=== PATIENT | female | born 1960 | race Caucasian/White ===

== ENCOUNTER 2020-08-05 10:29 | Observation (INO) ==
--- NOTE | 2020-07-15 14:48 | PAT Medication Instructions ---
Medication Instructions Date of Service July 15, 2020 Home Medications albuterol sulfate [Ventolin HFA] 2 puff INHALATION QID PRN benztropine 1 mg PO BID budesonide [Pulmicort Flexhaler] 2 inh INHALATION BID buspirone 30 mg PO BID hydroxyzine HCl 25 mg PO QID PRN ibuprofen 600 mg PO BID PRN levothyroxine 50 mcg PO UD omeprazole 40 mg PO QAM pravastatin 40 mg PO HS risperidone 3 mg PO BID sertraline 50 mg PO QAM acetaminophen [Tylenol Extra Strength] 1,000 mg PO BID PRN ASK your surgeon for instructions ibuprofen 600 mg PO BID PRN DO NOT take the morning of surgery hydroxyzine HCl 25 mg PO QID PRN Take morning of surgery With a small sip of water, OTHERWISE NOTHING TO EAT OR DRINK AFTER MIDNIGHT: albuterol sulfate [Ventolin HFA] 2 puff INHALATION QID PRN (use if needed; please bring rescue inhaler with you to hospital day of surgery if possible) benztropine 1 mg PO BID budesonide [Pulmicort Flexhaler] 2 inh INHALATION BID buspirone 30 mg PO BID levothyroxine 50 mcg PO UD omeprazole 40 mg PO QAM risperidone 3 mg PO BID sertraline 50 mg PO QAM acetaminophen [Tylenol Extra Strength] 1,000 mg PO BID PRN (okay to take up to 4 hours prior to surgery if needed) Take evening before surgery albuterol sulfate [Ventolin HFA] 2 puff INHALATION QID PRN (if needed) benztropine 1 mg PO BID budesonide [Pulmicort Flexhaler] 2 inh INHALATION BID buspirone 30 mg PO BID hydroxyzine HCl 25 mg PO QID PRN (if needed) pravastatin 40 mg PO HS risperidone 3 mg PO BID acetaminophen [Tylenol Extra Strength] 1,000 mg PO BID PRN (if needed) Other Notes If you have any questions please call us at [phone] or [phone] or [phone] or [phone]
--- NOTE | 2020-07-31 12:48 | Anesthesiology Consultation ---
Date of Service July 31, 2020 Assessment & Plan (1) Encounter for pre-operative examination: - COVID screening: Per assessment on 07/08: Travel screen negative, no known COVID-19 positive contacts or current COVID-19 related symptoms. Surgeon arranging preop COVID testing. Awaiting results. - Bifascicular block: noted on preop EKG done 03/2020. No comparison EKG's available. Report forwarded to PCP. Received response from PCP (07/31/20): "she has RBBB but otherwise NSR. she is OK to have surg.. she has multiple lung issues so just need to monitor O2 sats closely." - PCP Clearance: 04/02/20: "patient is medically clear for the surgery." - Pulmonary Clearance: 03/29/20: "Based on that ArisCAT score index patient falls into low pulmonary risk complications. Patient is morbidly obese. She is aware that it may be difficult to extubate her. She has to be extubated to BiPAP/AVAPS. High risk for aspiration. Opioid free anesthesia is recommended. Recommend albuterol nebulization half an hour prior to the procedure. Patient is cleared for surgery under general anesthesia. If possible spinal anesthesia should be considered for her." Chart Review Chart Review: Acceptable Risk for Surgery (pending evaluation AM DOS) and Patient NOT seen in Pre Admission Testing History Surgery Operation Date: 08/05/20 12:10 Proposed Procedures p Left Total Knee Arthroplasty - Quoc Das DO Height/Weight Height: 5 ft 3.5 in Weight: 106.141 kg Allergies Allergy/AdvReac Type Severity Reaction Status Date / Time No Known Allergies Allergy Verified 07/08/20 11:48 Medications Home Medications Medication Instructions Recorded Confirmed Last Taken albuterol sulfate [Ventolin HFA] 2 puff INHALATION QID PRN 03/19/20 07/08/20 Unknown benztropine 1 mg PO BID 03/19/20 07/08/20 Unknown budesonide [Pulmicort Flexhaler] 2 inh INHALATION BID 03/19/20 07/08/20 Unknown buspirone 30 mg PO BID 03/19/20 07/08/20 Unknown hydroxyzine HCl 25 mg PO QID PRN 03/19/20 07/08/20 Unknown ibuprofen 600 mg PO BID PRN 03/19/20 07/08/20 Unknown levothyroxine 50 mcg PO UD 03/19/20 07/08/20 Unknown omeprazole 40 mg PO QAM 03/19/20 07/08/20 Unknown pravastatin 40 mg PO HS 03/19/20 07/08/20 Unknown risperidone 3 mg PO BID 03/19/20 07/08/20 Unknown sertraline 50 mg PO QAM 03/19/20 07/08/20 Unknown acetaminophen [Tylenol Extra 1,000 mg PO BID PRN 07/08/20 07/08/20 Unknown Strength] Past Medical History Medical History Anxiety Asthma on 3L at home (does not have portable), follows with Dr. Gonzales at [facility] Bifascicular block noted on 03/26/20 EKG Bipolar disorder Bruxism (teeth grinding) Congestive heart failure hx Hyperlipidemia Hypothyroidism Obesity hypoventilation syndrome Osteoarthritis Poor historian Sleep apnea CPAP Stress incontinence Past Family History Family History Family/Other Diabetes 2 UNCLES Grandmother (Maternal) Colon cancer Other No family history of adverse response to anesthesia Past Surgical History Surgical History History of cholecystectomy History of colonoscopy History of hysterectomy with unilateral oophorectomy History of repair of left rotator cuff History of tooth extraction Social History Smoking Status: Former smoker Do You Dip or Chew Tobacco: No Smoking End Date: QUIT 1 YR AGO Hx Alcohol Use: Yes Alcohol type: hard liquor alcohol intake frequency: holidays/special occasions only Hx Substance Use: No substance use type: does not use Testing Laboratory Results 07/24/20 WBC 12.15 (surgeon's office aware) H/H 13.9/45.5 PLATELETS 317 SODIUM 136 POTASSIUM 4.2 CHLORIDE 99 CO2 29.7 BUN 13.8 CREATININE 0.95 GLUCOSE 102 PT 10.7 PTT 35.4 INR 0.94 UA negative nitrite, large leuk est/+bacteria (surgeon's office aware) HGBA1C 5.8% TSH 44.6 Free T4 0.58 PCP monitoring thyroid levels and levothyroxine dosing. At anesthesiologist discretion AM DOS if repeat thyroid labs needed* Electrocardiogram Date: 03/26/20 Findings: + NSR @ (89bpm) RBBB, LPFB. *Bifascicular block.* No previous EKGs available in our system. Chest X-Ray Date: 03/18/20 Findings: + NAD
--- NOTE | 2020-08-03 08:30 | History & Physical Report ---
Date of Service August 05, 2020 Assessment & Plan (1) Degenerative joint disease of left knee: I have indicated the patient for left total knee replacement. The risks, benefits and complications of surgery were explained to the patient which include but not limited to infection, acute blood loss, DVT/PE, injury to nerves, vessels, bone, soft tissue, arthrofibrosis, chronic pain, failure of the prosthesis, knee dislocation, leg length discrepancy, need for additional surgery, cardiac and pulmonary events and . The patient wished to proceed with surgery and informed consent was obtained at this time. We will plan for 81mg ASA BID post-operatively for DVT prophylaxis. Upon discharge the patient will be discharged home with home health services. Appropriate clearances by PCP and vending machine coin collector were obtained. Patient asymptomatic for UTI. History of Present Illness Chief Complaint: Left knee pain/DJD Primary Care Provider: TOMA PCP The patient is a 60 year old female who presents with complaints of severe left knee pain and DJD. The patient has failed outpatient conservative treatments to this point which included NSAIDs, IA corticosteroid and BISWAS injections, bracing, PT and a home exercise/walking program. The patient's pain and limited function have progressed to the point where they severely hinder their activities of daily living and they no longer tolerate exercise programs. They are requesting to proceed with total knee replacement surgery. Allergies Allergy/AdvReac Type Severity Reaction Status Date / Time No Known Allergies Allergy Verified 08/05/20 10:52 Home Medications Medication Instructions Recorded Confirmed Type albuterol sulfate [Ventolin HFA] 2 puff INHALATION QID PRN 03/19/20 08/05/20 History benztropine 1 mg PO BID 03/19/20 08/05/20 History budesonide [Pulmicort Flexhaler] 2 inh INHALATION BID 03/19/20 08/05/20 History buspirone 30 mg PO BID 03/19/20 08/05/20 History hydroxyzine HCl 25 mg PO QID PRN 03/19/20 08/05/20 History ibuprofen 600 mg PO BID PRN 03/19/20 08/05/20 History levothyroxine 100 mcg PO UD 03/19/20 08/05/20 History omeprazole 40 mg PO QAM 03/19/20 08/05/20 History pravastatin 40 mg PO HS 03/19/20 08/05/20 History risperidone 3 mg PO BID 03/19/20 08/05/20 History sertraline 50 mg PO QAM 03/19/20 08/05/20 History acetaminophen [Tylenol Extra 1,000 mg PO BID PRN 07/08/20 08/05/20 History Strength] Past Med/Surg History Medical History Anxiety Asthma on 3L at home (does not have portable), follows with Dr. Gonzales at [facility] Bifascicular block noted on 03/26/20 EKG Bipolar disorder Bruxism (teeth grinding) Congestive heart failure hx Hyperlipidemia Hypothyroidism Obesity hypoventilation syndrome Osteoarthritis Poor historian Sleep apnea CPAP Stress incontinence Surgical History History of cholecystectomy History of colonoscopy History of hysterectomy with unilateral oophorectomy History of repair of left rotator cuff History of tooth extraction Family History Family/Other Diabetes 2 UNCLES Grandmother (Maternal) Colon cancer Other No family history of adverse response to anesthesia Social History Smoking Status: Former smoker Smoking End Date: QUIT 1 YR AGO; Second Hand Exposure: Yes (FATHER SMOKED); Do You Dip or Chew Tobacco: No; Hx Alcohol Use: Yes Alcohol type: hard liquor Hx Substance Use: No Preferred Language: Turkmen Communication Ability: Effective Yard Cleaner Required: No Beliefs That Will Affect Care: Amish Amish Beliefs: Shinto Current Living Situation: Alone Other Information That Helps Us Care for You: No Feels Safe at Home: Yes Safety Concerns: Feels Safe At This Time Assistive Devices: CPAP, Glasses, Oxygen - Continuous and Walker Review of Systems Review of Systems: All systems reviewed & are unremarkable except as noted in HPI & below Constitutional: as per Subjective / HPI Physical Exam Physical Exam: LLE NVSI +EHL/FHL/TA/GS SILT grossly, +2 DP pulse, compartments soft NT, limited painful ROM, 0-120 degrees flexion, +crepitus. Constitutional: WD/WN, vitals as above Eyes: PERRL, conjunctivae normal, anicteric sclerae ENMT: external ear and nose normal, oropharynx normal Neck: trachea midline, no thyromegaly Respiratory: normal respiratory effort, lungs clear to auscultation Cardiovascular: RRR, no murmur, no edema Gastrointestinal (Abdomen): normal bowel sounds, soft, nontender, no hepatosplenomegaly Musculoskeletal: no cyanosis or clubbing, extremities motor strength 5/5 Skin: no rashes, warm and dry Neurologic: patellar DTR's 2+ bilat, sensation intact Psychiatric: A+Ox3, euthymic affect Lymphatic: no cervical or axillary lymphadenopathy Results & Data Results & Data ([facility]) Diagnostic Findings Multiple views of the knee demonstrates severe tricompartmental DJD with complete loss of the medial joint space. +osteophytes, +sclerosis, +subchondral cysts.
[~2020-08-05 10:29] MED LIST: ACETAMINOPHEN 500 MG TAB PO SCH; BUPIVACAINE 0.5 % 5 MG/1 ML PF 10ML VIAL ONE; CeleBREX 200 MG CAP PO SCH; FAMOTIDINE 20 MG TAB PO SCH; LIDOCAINE HCL 2% 2 ML VIAL/AMP(20MG/ML) INFIL ONE; LR 15ML/HR IV SCH; METOCLOPRAMIDE HCL 10 MG TABLET PO SCH; MIDAZOLAM HCL 1 MG/ML 2ML VIAL ONE; PHENYLEPHRINE 100MCG/ML 5ML SYR ONE; PROPOFOL IV EMULSION 10 MG/ML 20 ML VIAL IV ONE; ROPIVACAINE 0.5% 5 MG/ML 30 ML VIAL ONE; ROPIVACAINE 0.5% HCL/PF 150 MG, BUPIVACAINE 0.75% MPF 20 ML, EPINEPHrine 30MG/30ML (OR ... INFIL SCH; TRANEXAMIC ACID 1,000 MG **IV Intra-op IV SCH; TRANEXAMIC ACID 1,000 MG **IV Pre-op IV SCH; [UNRECOGNIZED DRUG - REMARK] SCH; dexAMETHasone 4 MG TAB PO SCH; ePHEDrine sulfate 50 MG/ML SYR ONE; fentaNYL citrate 100 MCG/2 ML VIAL ONE
[2020-08-05] MEDS ORDERED: ceFAZolin 2,000 MG/15 ML IV PUSH IV ONE (10:58)
[2020-08-05] MEDS ORDERED: BACITRACIN INJ 50,000 UNIT VIAL ONE (11:31)
[2020-08-05] MEDS ORDERED: ORTHO JOINT ANESTHETIC ONE (11:31)
--- NOTE | 2020-08-05 12:53 | History & Physical Bridge Note ---
Date of Service August 05, 2020 History & Physical Bridge Note I have examined the patient, reviewed the History & Physical and in the interval since the performance of the History & Physical I have noted the following changes of clinical significance: no changes noted
--- NOTE | 2020-08-05 14:14 | Post Operative Brief Note ---
Immediate Post Op Note v1 Date of Surgery August 05, 2020 Pre & Post Diagnosis Operation Date: 08/05/20 13:00 Pre-Op Diagnosis: Osteoarthritis Left Knee Post-Op Diagnosis: Osteoarthritis Left Knee I identified the patient and participated in the time-out.: Yes Procedure Operation Date: 08/05/20 13:00 Actual Procedures p Left Total Knee Arthroplasty(Left) - Quoc Das DO Surgeon Quoc Das DO Photographic Equipment Inspector Mateusz Magaña Estimated Blood Loss 75 Findings Consistent with Post-Op Diagnosis Fluids See anesthesia report Specimens Proximal tibia and distal femur bone fragments Anesthesia Type Spinal MAC Complications none Disposition Disposition: Recovery Room Overlapping Procedure I was present for: the critical portions of procedure. I was immediately available: during the entire case. Back up surgeon: was not required during procedure.
--- NOTE | 2020-08-05 14:16 | Operative Report ---
Post Operative Report Pre & Post Diagnosis Operation Date: 08/05/20 13:00 Pre-Op Diagnosis: Osteoarthritis Left Knee Post-Op Diagnosis: Osteoarthritis Left Knee I identified the patient and participated in the time-out.: Yes Procedure Operation Date: 08/05/20 13:00 Actual Procedures p Left Total Knee Arthroplasty(Left) - Quoc Das DO Surgeon Quoc Das DO Fence Making Machine Operator Mateusz Magaña Estimated Blood Loss 75 Findings Consistent with Post-Op Diagnosis Fluids See anesthesia report Specimens Proximal tibia and distal femur bone fragments Anesthesia Type Spinal MAC Complications none Disposition Disposition: Recovery Room Indications The patient is a 60-year-old female presents with long history of severe left knee tricompartmental DJD and failed outpatient conservative treatments including NSAIDs, bracing, injections and home walking/exercise program. The patient's symptoms have progressed to the point where it has been difficult to perform normal activities of daily living. I have indicated the patient for a left total knee arthroplasty, the risks and benefits and complications of the procedure include but are not limited to infection bleeding damage to bone, nerves, vessels, surrounding soft tissue, blood clots, loss of function, leg length discrepancy, dislocation, failure of the components, need for additional surgery and . The patient wished to proceed with surgery at this time and informed consent was obtained. Appropriate clearances were obtained. Description of Procedure COMPONENTS USED: Nina [employer]omet knee system: Femur size 4 standard, Tibia size D with 30 mm extension, Tibial articulating surface 12 CPS, Patella 32 mm Following induction of spinal anesthesia, a tourniquet was applied to the proximal aspect of the thigh and the patient's left leg was prepped and draped in the usual sterile manner. A timeout was performed, patient identified and site marcelo confirmed. Appropriate pre-operative IV antibiotics were given. The limb was exsanguinated with an Esmarch bandage and tourniquet was inflated to 300 mmHg. A longitudinal midline incision was made over the anterior knee. Subcutaneous tissue was sharply dissected down to fascia. Electrocautery was used for hemostasis. Next a parapatellar arthrotomy was performed. Patella was everted and the knee was flexed. A Hernandez retractor was used to expose the synovium above on the anterior aspect of the femur and removed down to bone. Next, the anterior fat pad was removed to aid in visualization. The medial face of the tibia was cleared of soft tissue first with a Bovie and a burks elevator. This tissue was retracted posteriorly using a blunt Hohmann. Next, the extra-medullary tibial cutting guide was placed to the anterior aspect of the tibia. The tibia resection level was set taking 2mm from the defective tibial condyle. Resection depth was once again confirmed with nir wing. The medial and lateral collateral ligament was protected with two Hohmann retractors. The tibia guide was removed and proximal tibial bone fragment removed utilizing straight osteotome, electrocautery and Teodora. Next, the distal femur intramedullary canal was accessed utilizing the step drill. The intramedullary distal femur cutting guide was placed into the canal and pinned into place. The distal femur was cut on the 5 degree setting. Next the cutting guide was removed and the femur was sized. Care was taken to ensure appropriate slot shift supervisor all rotation and 3 degree holes were drilled. A size 4 4-in-1 cutting block was placed on the distal end of the femur and secured into place with two short headed screws. Two bent Hohmann retractors were placed to protect the medial and lateral collateral ligaments. The oscillating saw was used to cut anterior, posterior, anterior chamfer and posterior chamfer. The four and one cutting block was removed and bone fragments excised. Patricio inar perpetual inventory clerk was placed laterally and the ACL and PCL were removed followed by the medial meniscus and posterior medial osteophytes. Aquamantys was utilized for any posterior medial bleeders and Orthomix injected into the posterior medial capsule. A laminar perpetual inventory clerk was then placed in the medial compartment and the lateral meniscus and posterior osteophytes were removed. Aquamantys was utilized for any posterior lateral bleeders and Orthomix injected into the posterior lateral capsule. Next, drop milagro and spacer block were placed with the leg in flexion and extension to assess alignment and flexion/extension gaps. Next, the proximal tibia was assessed and two bent Hohmans were placed medial and lateral to aid in visualization. The appropriate tibia size and rotation was selected and a size D tibial plate was pinned into place with appropriate rotation. Preparation of the tibia was completed utilizing the matching tibial drill and broach. I then turned my attention back to the distal femur in a trial femoral component was impacted into place. Appropriate femoral width was assessed and selected. Next the femur PS box cut guide was placed and cut made with the reciprocal saw and the PS box provisional placed. A trial size 12 PS tibia articular tray was placed and varus-valgus balance assessed in 0 degrees of extension and 30, 60 and 90 degrees of flexion. A final tibial articular surface size 12 CPS was chosen. Assess was gained to the patella and caliper utilized to measure width. The patella reamer was utilized and remaining bone removed with oscillating saw. A size 32 mm patella button was selected and the patella pegs drilled. Trial patella button was placed and tracking was assessed. The knee was found to be well balanced, well aligned with excellent patella tracking. The trials were removed and final components were obtained and assembled. The knee was irrigated copiously with sterile saline solution mixed with bacitracin. Access to the proximal tibia was once again obtained utilizing to the Hohmans and the proximal tibia and distal femur were dried with lap sponges. The final components were cemented into place and all excess cement was removed. A trial tibial articular surface was placed while cemented hardened. Knee stability was once again assessed and the final component inserted. A Betadine soak was performed. After 3 minutes, the knee was once more irrigated with copious sterile saline solution with bacitracin. The knee was injected with the remaining Orthomix which includes a combination of Ropivicaine 0.5% 150mg, Bupivicaine 0.5%/Epinephrine 1:200,000 30ml, Toradol 30mg, Dexamethasone 4mg, Ketamine 10mg, Clonidine 100mcg and NSS 30ml solution. The capsulotomy was closed with #1 Vicryl followed by subcutaneous closure with 2-0 Vicryl suture and the skin was closed with mariah. A sterile dry dressing was applied which included lorraine incisional VAC, web roll and Philippe wrap. Tourniquet was deflated at 77 minutes. The patient tolerated the procedure well and was taken to the PACU in stable condition. Due to the complex nature of the procedure, the entire surgery was performed with the operational assistance of Mateusz Magaña PA-C. The employee relations assistant, under direct supervision, was involved in the actual performance of all aspects of the surgical procedure including patient positioning, hemostasis, tissue retraction, instrument management and wound closure. I attest to the content of the Intraoperative Record and any orders documented therein. Any exceptions are noted below.
--- NOTE | 2020-08-05 15:08 | XRay Report ---
TWO VIEWS LEFT KNEE CLINICAL HISTORY: Postoperative examination. FINDINGS: AP and crosstable lateral portable views of the left knee are obtained. A left knee arthrop lasty is in near anatomic alignment. There has been undersurface remodeling of the patella. No acute fracture is seen. There are expected postoperative changes around the knee including skin clips, sof t tissue edema, and subcutaneous gas. IMPRESSION: Expected postoperative changes status post left knee arthroplasty. No acute fracture is s een. ACT 112: Negative or not required by law. Electronically signed by: Mayo Helm M.D. 08/05/2020 3:07 PM
--- NOTE | 2020-08-05 16:08 | Anesthesiology Progress Note ---
Date of Service August 05, 2020 Anesthesia Post Procedure Vital Signs Vital Signs: Temp Pulse Resp BP Pulse Ox 08/05/20 16:05 36.6 C 94 H 16 113/72 94 08/05/20 15:55 36.6 C 89 16 103/79 93 08/05/20 15:45 36.6 C 87 18 124/85 92 08/05/20 15:35 84 16 115/74 94 08/05/20 15:25 86 19 104/79 95 08/05/20 15:15 80 18 122/86 95 08/05/20 15:05 83 15 99/72 L 97 08/05/20 14:55 87 18 117/72 94 08/05/20 14:45 96 H 17 100/82 93 08/05/20 14:39 36.8 C 96 H 16 98/72 L 93 08/05/20 12:31 93 H 20 113/72 96 08/05/20 11:00 36.7 C 88 18 124/95 93 Pain Intensity Bilateral Knee: Pain Intensity: 4 Transfer of Care Handoff Completed per policy Notes Mental Status: alert / awake / arousable and participated in evaluation Patient Amnestic to Procedure: Yes Nausea / Vomiting: adequately controlled Pain: adequately controlled Airway Patency, RR, SpO2: stable & adequate BP & HR: stable & adequate Hydration State: stable & adequate Anesthetic Complications: no major complications apparent and Pt Satisfied with anesthetic care
[2020-08-05] MEDS ORDERED: diphenhydrAMINE Capsule 25 MG CAP PO PRN (16:41)
[2020-08-05] MEDS ORDERED: MAGNESIUM HYDROXIDE SUSP 30 ML UDC PO PRN (16:41)
[2020-08-05] MEDS ORDERED: ALBUTEROL HFA 8 GM INHALER INH PRN (16:41)
[2020-08-05] MEDS ORDERED: NALOXONE HCL 0.4 MG/1 ML VIAL/CARP IV PRN (16:41)
[2020-08-05] MEDS ORDERED: ONDANSETRON INJ 2 MG/ML 2 ML VIAL IV PRN (16:41)
[2020-08-05] MEDS ORDERED: bisacodyL 10 MG SUPP PR PRN (16:41)
[2020-08-05] MEDS ORDERED: METOCLOPRAMIDE HCL INJ 5 MG/ML 2 ML VIAL IV PRN (16:41)
[2020-08-05] MEDS ORDERED: HYDROmorphone INJ 0.5 MG/0.5 ML SYR IV PRN (16:41)
--- NOTE | 2020-08-05 16:58 | Orthopedic Progress Note ---
Date of Service August 05, 2020 Assessment & Plan (1) Degenerative joint disease of left knee: Status post right total knee arthroplasty -Ancef x24 -DVT prophylaxis: SCDs, teds, 81 mg ASA twice daily -Weight-bear as tolerated left lower extremity -PT/OT -Postoperative x-ray demonstrates a well aligned well fixed prosthesis without fracture or dislocation -A.m. lab -Discharge planning rehab Admission and Anticipated Discharge Date Admission Date: August 05, 2020 Subjective Post Operative Progress Note Patient seen sitting up in bed, comfortable, denies complaints, pain well controlled, no acute issues. Review of Systems Review of Systems: All systems reviewed & are unremarkable except as noted in HPI & below Constitutional: as per Subjective / HPI Physical Exam Physical Exam: Physical exam left lower extremity limited secondary to spinal anesthesia, +2 dorsalis pedis pulse, compartment soft nontender, dressing clean dry and intact Constitutional: WD/WN, vitals as above Results & Data ([facility]) Vital Signs (Past 12 Hours) Vital Signs Temp Pulse Pulse Resp BP Pulse Ox 08/05/20 16:47 36.5 C 82 18 122/85 95 08/05/20 16:20 36.7 C 91 H 16 133/81 92 08/05/20 16:05 36.6 C 94 H 16 113/72 94 08/05/20 15:55 36.6 C 89 16 103/79 93 08/05/20 15:45 36.6 C 87 18 124/85 92 08/05/20 15:35 84 16 115/74 94 08/05/20 15:25 86 19 104/79 95 08/05/20 15:15 80 18 122/86 95 08/05/20 15:05 83 15 99/72 L 97 08/05/20 14:55 87 18 117/72 94 08/05/20 14:45 96 H 17 100/82 93 08/05/20 14:39 36.8 C 96 H 16 98/72 L 93 08/05/20 12:31 93 H 20 113/72 96 08/05/20 11:00 36.7 C 88 18 124/95 93
[2020-08-05] MEDS: SODIUM CHLORIDE 0.9% 1000ML 1,000 ML IV SCH ×2 (17:54→22:46)
[2020-08-05] MEDS: KETOROLAC TROMETHAMINE 15 MG/ML VIAL IV SCH ×2 (17:54→22:15)
[2020-08-05] MEDS: ceFAZolin 2000MG 2,000 MG/15 ML SYR IV SCH (22:12)
[2020-08-05] MEDS: SENNA 8.6 MG TAB PO SCH (22:13)
[2020-08-05] MEDS: PRAVASTATIN SOD 40 MG TAB PO SCH (22:13)
[2020-08-05] MEDS: risperiDONE 3 MG TABLET PO SCH (22:13)
[2020-08-05] MEDS: DOCUSATE SODIUM 100 MG CAP PO SCH (22:14)
[2020-08-05] MEDS: BENZTROPINE MESYLATE 1 MG TAB PO SCH (22:14)
[2020-08-05] MEDS: busPIRone 15 MG TAB PO SCH (22:14)
[2020-08-05] MEDS: ACETAMINOPHEN 500 MG TAB PO SCH (22:15)
[2020-08-06] MEDS: SODIUM CHLORIDE 0.9% 1000ML 1,000 ML IV SCH (04:20)
[2020-08-06] MEDS: ACETAMINOPHEN 500 MG TAB PO SCH ×3 (05:44→21:55)
[2020-08-06] MEDS: ceFAZolin 2000MG 2,000 MG/15 ML SYR IV SCH (05:44)
[2020-08-06] MEDS: KETOROLAC TROMETHAMINE 15 MG/ML VIAL IV SCH ×2 (05:44→11:37)
[2020-08-06 07:07] LABS: Hematocrit (blood only) 38.8 % (37-47); Hemoglobin 12.8 g/dL (12.0-16.0); Mean Corpuscular Volume 90.9 fL (80-100); Mean Platelet Volume 9.9 fL (7.4-10.4); Platelet Count 342 K/uL (130-400); RDW Coefficient of Variation 14.6 % (11.5-14.5); RDW Standard Deviation 48.8 fL (36.4-46.3); Red Blood Count 4.27 M/uL (4.2-5.4); White Blood Count 17.15 K/uL (4.8-10.8)
[2020-08-06 07:50] LABS: BUN Creatinine Ratio 15.2 (10-20); Creatinine Clr Calc Pharmacy 73.4 ml/min; Est GFR (African American) 76.3; Est GFR (Non-African American) 65.9; Potassium 4.1 mmol/L (3.5-5.1)
--- NOTE | 2020-08-06 08:09 | Anesthesiology Progress Note ---
Date of Service August 06, 2020 Anesthesia Post Procedure Vital Signs Vital Signs: Temp Pulse Pulse Resp BP BP Pulse Ox 08/06/20 03:13 36.7 C 81 20 111/74 90 08/05/20 21:49 36.5 C 78 16 99/67 L 91 08/05/20 19:20 36.6 C 82 18 114/76 94 08/05/20 18:20 36.6 C 96 H 18 112/78 94 08/05/20 17:25 36.5 C 104 H 18 124/86 93 08/05/20 16:47 36.5 C 82 18 122/85 95 08/05/20 16:20 36.7 C 91 H 16 133/81 92 08/05/20 16:05 36.6 C 94 H 16 113/72 94 08/05/20 15:55 36.6 C 89 16 103/79 93 08/05/20 15:45 36.6 C 87 18 124/85 92 08/05/20 15:35 84 16 115/74 94 08/05/20 15:25 86 19 104/79 95 08/05/20 15:15 80 18 122/86 95 08/05/20 15:05 83 15 99/72 L 97 08/05/20 14:55 87 18 117/72 94 08/05/20 14:45 96 H 17 100/82 93 08/05/20 14:39 36.8 C 96 H 16 98/72 L 93 08/05/20 12:31 93 H 20 113/72 96 08/05/20 11:00 36.7 C 88 18 124/95 93 Notes Mental Status: alert / awake / arousable Nausea / Vomiting: adequately controlled Pain: adequately controlled Airway Patency, RR, SpO2: stable & adequate BP & HR: stable & adequate Hydration State: stable & adequate Neuraxial Anesthesia: was administered and sensory block resolved Anesthetic Complications: no major complications apparent and Pt Satisfied with anesthetic care
[2020-08-06] MEDS: FLUTICASONE FUROATE 100MCG 14 PUFFS/INHALER INH SCH (08:29)
[2020-08-06] MEDS: busPIRone 15 MG TAB PO SCH ×2 (08:30→21:53)
[2020-08-06] MEDS: ASPIRIN 81 MG ECTAB PO SCH ×2 (08:31→21:53)
[2020-08-06] MEDS: BENZTROPINE MESYLATE 1 MG TAB PO SCH ×2 (08:31→21:54)
[2020-08-06] MEDS: MULTIVITAMIN TAB PO SCH (08:31)
[2020-08-06] MEDS: DOCUSATE SODIUM 100 MG CAP PO SCH ×2 (08:31→21:54)
[2020-08-06] MEDS: PANTOprazole 40 MG TAB PO SCH (08:32)
[2020-08-06] MEDS: risperiDONE 3 MG TABLET PO SCH ×2 (08:32→21:54)
[2020-08-06] MEDS: SERTRALINE HCL 50 MG TABLET PO SCH (08:32)
[2020-08-06] MEDS: oxyCODONE HCL IR 5 MG TAB (IMMEDIATE RELEASE) PO PRN ×3 (08:37→19:42)
--- NOTE | 2020-08-06 18:46 | Orthopedic Progress Note ---
Date of Service August 06, 2020 Assessment & Plan (1) Degenerative joint disease of left knee: Status post right total knee arthroplasty POD#1 -Ancef x24 -DVT prophylaxis: SCDs, teds, 81 mg ASA twice daily -Weight-bear as tolerated left lower extremity -PT/OT -Postoperative x-ray demonstrates a well aligned well fixed prosthesis without fracture or dislocation -A.m. lab - as above, hgb 12.8 -Discharge planning - rehab Admission and Anticipated Discharge Date Admission Date: August 05, 2020 Subjective Post Operative Progress Note Patient seen sitting up in bed, comfortable, denies complaints, pain well controlled, no acute issues. Denies F/C/N/V/SOB/CP. Review of Systems Review of Systems: All systems reviewed & are unremarkable except as noted in HPI & below Constitutional: as per Subjective / HPI Physical Exam Physical Exam: LLE NVSI +EHL/FHL/TA/GS SILT grossly, +2 DP pulse, compartments soft NT, dressing cdi. Constitutional: WD/WN, vitals as above Results & Data ([place]) Vital Signs (Past 12 Hours) Vital Signs Temp Pulse Resp BP Pulse Ox Pulse Ox Pulse Ox 08/06/20 14:55 36.3 C L 74 16 105/70 97 08/06/20 11:46 94 08/06/20 10:53 94 92 08/06/20 08:10 36.4 C L 75 16 110/76 92 Pulse Ox 08/06/20 14:55 08/06/20 11:46 08/06/20 10:53 96 08/06/20 08:10 Laboratory Results 08/06/20 08/06/20 Range/Units 06:46 06:46 WBC 17.15 H (4.8-10.8) K/uL RBC 4.27 (4.2-5.4) M/uL Hgb 12.8 (12.0-16.0) g/dL Hct 38.8 (37-47) % MCV 90.9 (80-100) fL MCH 30.0 (25-34) pg MCHC 33.0 (32-36) g/dL RDW Std Deviation 48.8 H (36.4-46.3) fL RDW Coeff of Ciarra 14.6 H (11.5-14.5) % Plt Count 342 (130-400) K/uL MPV 9.9 (7.4-10.4) fL Sodium 142 (136-145) mmol/L Potassium 4.1 (3.5-5.1) mmol/L Chloride 108 H (98-107) mmol/L Carbon Dioxide 29 (21-32) mmol/L Anion Gap 5.0 (3-11) BUN 14 (7-18) mg/dl Creatinine 0.93 (0.6-1.2) mg/dl Est Cr Clr Drug Dosing 73.4 ml/min Est GFR ( Amer) 76.3 Est GFR (Non-Af Amer) 65.9 BUN/Creatinine Ratio 15.2 (10-20) Glucose 122 H (70-99) mg/dl Calcium 9.0 (8.5-10.1) mg/dl
[2020-08-06] MEDS: SENNA 8.6 MG TAB PO SCH (21:54)
[2020-08-06] MEDS: CeleBREX 200 MG CAP PO SCH (21:55)
[2020-08-06] MEDS: PRAVASTATIN SOD 40 MG TAB PO SCH (21:55)
[2020-08-07] MEDS: oxyCODONE HCL IR 5 MG TAB (IMMEDIATE RELEASE) PO PRN ×3 (01:46→15:58)
[2020-08-07] MEDS: ACETAMINOPHEN 500 MG TAB PO SCH ×3 (05:12→20:14)
[2020-08-07 08:09] LABS: Hematocrit (blood only) 37.9 % (37-47); Hemoglobin 12.4 g/dL (12.0-16.0); Mean Corpuscular Hgb Conc 32.7 g/dL (32-36); Mean Corpuscular Volume 91.5 fL (80-100); Mean Platelet Volume 9.7 fL (7.4-10.4); Platelet Count 287 K/uL (130-400); RDW Standard Deviation 50.2 fL (36.4-46.3); Red Blood Count 4.14 M/uL (4.2-5.4); White Blood Count 11.05 K/uL (4.8-10.8)
[2020-08-07 08:45] LABS: BUN Creatinine Ratio 17.1 (10-20); Calcium 9.2 mg/dl (8.5-10.1); Creatinine Clr Calc Pharmacy 80.3 ml/min; Est GFR (African American) 85.1; Est GFR (Non-African American) 73.4; Potassium 4.1 mmol/L (3.5-5.1)
[2020-08-07] MEDS: BENZTROPINE MESYLATE 1 MG TAB PO SCH ×2 (09:06→20:12)
[2020-08-07] MEDS: ASPIRIN 81 MG ECTAB PO SCH ×2 (09:06→20:13)
[2020-08-07] MEDS: DOCUSATE SODIUM 100 MG CAP PO SCH ×2 (09:06→20:13)
[2020-08-07] MEDS: PANTOprazole 40 MG TAB PO SCH (09:06)
[2020-08-07] MEDS: CeleBREX 200 MG CAP PO SCH ×2 (09:06→20:12)
[2020-08-07] MEDS: FLUTICASONE FUROATE 100MCG 14 PUFFS/INHALER INH SCH (09:07)
[2020-08-07] MEDS: risperiDONE 3 MG TABLET PO SCH ×2 (09:07→20:13)
[2020-08-07] MEDS: MULTIVITAMIN TAB PO SCH (09:07)
[2020-08-07] MEDS: SERTRALINE HCL 50 MG TABLET PO SCH (09:07)
[2020-08-07] MEDS: busPIRone 15 MG TAB PO SCH ×2 (09:07→20:12)
--- NOTE | 2020-08-07 10:08 | Orthopedic Progress Note ---
Date of Service August 07, 2020 Assessment & Plan (1) Degenerative joint disease of left knee: Status post right total knee arthroplasty POD#2 -Ancef x24 -DVT prophylaxis: SCDs, teds, 81 mg ASA twice daily -Weight-bear as tolerated left lower extremity -PT/OT -Postoperative x-ray demonstrates a well aligned well fixed prosthesis without fracture or dislocation -A.m. lab - as above, hgb 12.4 -Discharge planning - rehab POD#1 -Ancef x24 -DVT prophylaxis: SCDs, teds, 81 mg ASA twice daily -Weight-bear as tolerated left lower extremity -PT/OT -Postoperative x-ray demonstrates a well aligned well fixed prosthesis without fracture or dislocation -A.m. lab - as above, hgb 12.8 -Discharge planning - rehab Admission and Anticipated Discharge Date Admission Date: August 05, 2020 Subjective Post Operative Progress Note Patient seen sitting up in bed, comfortable, denies complaints, pain well controlled, no acute issues. Denies F/C/N/V/SOB/CP. Review of Systems Review of Systems: All systems reviewed & are unremarkable except as noted in HPI & below Constitutional: as per Subjective / HPI Physical Exam Physical Exam: LLE NVSI +EHL/FHL/TA/GS SILT grossly, +2 DP pulse, compartments soft NT, dressing cdi. Constitutional: WD/WN, vitals as above Results & Data ([facility]) Vital Signs (Past 12 Hours) Vital Signs Temp Pulse Resp BP Pulse Ox 08/07/20 07:54 37.0 C 80 16 105/69 93 Laboratory Results 08/07/20 08/07/20 Range/Units 07:57 07:57 WBC 11.05 H (4.8-10.8) K/uL RBC 4.14 L (4.2-5.4) M/uL Hgb 12.4 (12.0-16.0) g/dL Hct 37.9 (37-47) % MCV 91.5 (80-100) fL MCH 30.0 (25-34) pg MCHC 32.7 (32-36) g/dL RDW Std Deviation 50.2 H (36.4-46.3) fL RDW Coeff of Ciarra 15.0 H (11.5-14.5) % Plt Count 287 (130-400) K/uL MPV 9.7 (7.4-10.4) fL Sodium 139 (136-145) mmol/L Potassium 4.1 (3.5-5.1) mmol/L Chloride 106 (98-107) mmol/L Carbon Dioxide 30 (21-32) mmol/L Anion Gap 3.0 (3-11) BUN 15 (7-18) mg/dl Creatinine 0.85 (0.6-1.2) mg/dl Est Cr Clr Drug Dosing 80.3 ml/min Est GFR ( Amer) 85.1 Est GFR (Non-Af Amer) 73.4 BUN/Creatinine Ratio 17.1 (10-20) Glucose 94 (70-99) mg/dl Calcium 9.2 (8.5-10.1) mg/dl
[2020-08-07] MEDS: hydrOXYzine HCl 25 MG TAB PO PRN ×2 (11:53→17:41)
[2020-08-07] MEDS: PRAVASTATIN SOD 40 MG TAB PO SCH (20:13)
[2020-08-07] MEDS: SENNA 8.6 MG TAB PO SCH (20:13)
[2020-08-08] MEDS: ACETAMINOPHEN 500 MG TAB PO SCH (06:11)
[2020-08-08 07:32] LABS: Hematocrit (blood only) 38.4 % (37-47); Hemoglobin 12.4 g/dL (12.0-16.0); Mean Corpuscular Hemoglobin 29.6 pg (25-34); Mean Corpuscular Hgb Conc 32.3 g/dL (32-36); Mean Corpuscular Volume 91.6 fL (80-100); Platelet Count 304 K/uL (130-400); RDW Standard Deviation 50.7 fL (36.4-46.3); Red Blood Count 4.19 M/uL (4.2-5.4); White Blood Count 9.03 K/uL (4.8-10.8)
[2020-08-08 08:03] LABS: BUN Creatinine Ratio 16.6 (10-20); Calcium 9.2 mg/dl (8.5-10.1); Creatinine Clr Calc Pharmacy 88.7 ml/min; Est GFR (African American) 95.9; Est GFR (Non-African American) 82.8
--- NOTE | 2020-08-08 08:51 | Orthopedic Progress Note ---
Date of Service August 08, 2020 Assessment & Plan (1) Degenerative joint disease of left knee: Status post right total knee arthroplasty POD#3 -Ancef x24 -DVT prophylaxis: SCDs, teds, 81 mg ASA twice daily -Weight-bear as tolerated left lower extremity -PT/OT -Postoperative x-ray demonstrates a well aligned well fixed prosthesis without fracture or dislocation -A.m. lab - as above, hgb 12.4 -Discharge planning - rehab POD#2 -Ancef x24 -DVT prophylaxis: SCDs, teds, 81 mg ASA twice daily -Weight-bear as tolerated left lower extremity -PT/OT -Postoperative x-ray demonstrates a well aligned well fixed prosthesis without fracture or dislocation -A.m. lab - as above, hgb 12.4 -Discharge planning - rehab POD#1 -Ancef x24 -DVT prophylaxis: SCDs, teds, 81 mg ASA twice daily -Weight-bear as tolerated left lower extremity -PT/OT -Postoperative x-ray demonstrates a well aligned well fixed prosthesis without fracture or dislocation -A.m. lab - as above, hgb 12.8 -Discharge planning - rehab Admission and Anticipated Discharge Date Admission Date: August 05, 2020 Subjective Post Operative Progress Note Patient seen sitting up in bed, comfortable, denies complaints, pain well controlled, no acute issues. Denies F/C/N/V/SOB/CP. Review of Systems Review of Systems: All systems reviewed & are unremarkable except as noted in HPI & below Constitutional: as per Subjective / HPI Physical Exam Physical Exam: LLE NVSI +EHL/FHL/TA/GS SILT grossly, +2 DP pulse, compartments soft NT, dressing cdi. Constitutional: WD/WN, vitals as above Results & Data ([place]) Vital Signs (Past 12 Hours) Vital Signs Temp Pulse Resp BP BP Pulse Ox 08/08/20 07:55 36.6 C 94 H 16 102/71 99 08/07/20 23:05 36.6 C 97 H 16 106/68 94 Laboratory Results 08/08/20 08/08/20 08/07/20 Range/Units 06:57 06:57 12:22 WBC 9.03 (4.8-10.8) K/uL RBC 4.19 L (4.2-5.4) M/uL Hgb 12.4 (12.0-16.0) g/dL Hct 38.4 (37-47) % MCV 91.6 (80-100) fL MCH 29.6 (25-34) pg MCHC 32.3 (32-36) g/dL RDW Std Deviation 50.7 H (36.4-46.3) fL RDW Coeff of Ciarra 15.0 H (11.5-14.5) % Plt Count 304 (130-400) K/uL MPV 10.0 (7.4-10.4) fL Sodium 139 (136-145) mmol/L Potassium 4.0 (3.5-5.1) mmol/L Chloride 105 (98-107) mmol/L Carbon Dioxide 29 (21-32) mmol/L Anion Gap 5.0 (3-11) BUN 13 (7-18) mg/dl Creatinine 0.77 (0.6-1.2) mg/dl Est Cr Clr Drug Dosing 88.7 ml/min Est GFR ( Amer) 95.9 Est GFR (Non-Af Amer) 82.8 BUN/Creatinine Ratio 16.6 (10-20) Glucose 107 H (70-99) mg/dl Calcium 9.2 (8.5-10.1) mg/dl COVID-19 Eval Order SARS-CoV-2, RNA, NAAT NEGATIVE (NEGATIVE) 08/07/20 Range/Units 12:22 WBC (4.8-10.8) K/uL RBC (4.2-5.4) M/uL Hgb (12.0-16.0) g/dL Hct (37-47) % MCV (80-100) fL MCH (25-34) pg MCHC (32-36) g/dL RDW Std Deviation (36.4-46.3) fL RDW Coeff of Ciarra (11.5-14.5) % Plt Count (130-400) K/uL MPV (7.4-10.4) fL Sodium (136-145) mmol/L Potassium (3.5-5.1) mmol/L Chloride (98-107) mmol/L Carbon Dioxide (21-32) mmol/L Anion Gap (3-11) BUN (7-18) mg/dl Creatinine (0.6-1.2) mg/dl Est Cr Clr Drug Dosing ml/min Est GFR ( Amer) Est GFR (Non-Af Amer) BUN/Creatinine Ratio (10-20) Glucose (70-99) mg/dl Calcium (8.5-10.1) mg/dl COVID-19 Eval [facility] SARS-CoV-2, RNA, NAAT (NEGATIVE)
[2020-08-08] MEDS: FLUTICASONE FUROATE 100MCG 14 PUFFS/INHALER INH SCH (08:52)
[2020-08-08] MEDS: busPIRone 15 MG TAB PO SCH (08:53)
[2020-08-08] MEDS: SERTRALINE HCL 50 MG TABLET PO SCH (08:53)
[2020-08-08] MEDS: ASPIRIN 81 MG ECTAB PO SCH (08:53)
[2020-08-08] MEDS: DOCUSATE SODIUM 100 MG CAP PO SCH (08:53)
[2020-08-08] MEDS: PANTOprazole 40 MG TAB PO SCH (08:53)
[2020-08-08] MEDS: CeleBREX 200 MG CAP PO SCH (08:53)
[2020-08-08] MEDS: risperiDONE 3 MG TABLET PO SCH (08:53)
[2020-08-08] MEDS: BENZTROPINE MESYLATE 1 MG TAB PO SCH (08:53)
[2020-08-08] MEDS: MULTIVITAMIN TAB PO SCH (08:53)
[2020-08-08] MEDS: oxyCODONE HCL IR 5 MG TAB (IMMEDIATE RELEASE) PO PRN (08:56)
--- NOTE | 2020-08-08 21:36 | Discharge Summary ---
Date of Service August 08, 2020 Admission HPI Per Admitting Provider The patient is a 60 year old female who presents with complaints of severe left knee pain and DJD. The patient has failed outpatient conservative treatments to this point which included NSAIDs, IA corticosteroid and BISWAS injections, bracing, PT and a home exercise/walking program. The patient's pain and limited function have progressed to the point where they severely hinder their activities of daily living and they no longer tolerate exercise programs. They are requesting to proceed with total knee replacement surgery. Principal Diagnosis Left total knee replacement Discharge Exam LLE NVSI +EHL/FHL/TA/GS SILT grossly, +2 DP pulse, compartments soft NT, dressing cdi. Constitutional WD/WN, vitals as above Discharge Data Allergies Allergy/AdvReac Type Severity Reaction Status Date / Time No Known Allergies Allergy Verified 08/05/20 10:52 Procedures Performed Operation Date: 08/05/20 13:00 Actual Procedures p Left Total Knee Arthroplasty(Left) - Quoc Das DO Ordered Studies 08/05/20 05:00 US - OR guided needle placemen Routine Hospital Course (1) Degenerative joint disease of left knee: The patient is a 60 -year-old female who presents with long standing history of severe left knee DJD and failed outpatient conservative treatments. The patient's symptoms have progressed to the point where it has been difficult to perform even normal activities of daily living. I indicated the patient for a left total knee arthroplasty, the risks, benefits and complications of the procedure include but not limited to infection, bleeding, damage to bone, nerves, vessels, surrounding soft tissue, may develop blood clots, loss of function, leg length discrepancy, dislocation, failure of the components, loosening of the components, the need for additional surgery and . The patient wished to proceed with surgery at this time and informed consent was obtained. Hospital Course: On 08/05/20 the patient was taken to the operating room, adequate anesthesia administered and underwent a left total knee arthroplasty. The patient tolerated the procedure well and was taken to the PACU in stable condition. Post-operatively the patient was started on a DVT ppx medication and given appropriate IV antibiotics. Consults were placed to physical therapy, occupational therapy and case management. On POD#1, the patient did well overnight and their pain was well controlled. Labs were drawn and the Hgb was 12.8. The patient was slow to progress with PT. On POD#2, the patient continued to do well. No acute issues overnight, participated in PT. Labs were drawn, hgb 12.4. On POD#3, the patient continued to do well. No acute issues overnight, participated in PT. Labs were drawn, hgb 12.4 The patients hospital stay was relatively uneventful and they were deemed stable by the orthopedic team and consultants to be discharged to rehab on 08/08/20. Discharge Instructions: Upon discharge the patient may weight bear as tolerates through their operative extremity. They were instructed to keep the incision clean and dry at all times. The patient may shower but should not submerge the incision, avoid bathing, pools and hot tubs. The patient was given a script for pain medication and should take as instructed. The patient was given a script for DVT ppx 81mg BID and should take as directed. The patient was instructed to not drive or travel for long distances until cleared to do so. If the patient develops any symptoms of fevers, chills, nausea, vomiting, increased redness, swelling, pain or drainage from the surgical site, they should notify the office and/or proceed to the nearest emergency room. The patient should follow up in 10-14 days after surgery for their routine post-operative follow-up appointment and should call the office, to confirm the date and time. Status post right total knee arthroplasty POD#3 -Ancef x24 -DVT prophylaxis: SCDs, teds, 81 mg ASA twice daily -Weight-bear as tolerated left lower extremity -PT/OT -Postoperative x-ray demonstrates a well aligned well fixed prosthesis without fracture or dislocation -A.m. lab - as above, hgb 12.4 -Discharge planning - rehab POD#2 -Ancef x24 -DVT prophylaxis: SCDs, teds, 81 mg ASA twice daily -Weight-bear as tolerated left lower extremity -PT/OT -Postoperative x-ray demonstrates a well aligned well fixed prosthesis without fracture or dislocation -A.m. lab - as above, hgb 12.4 -Discharge planning - rehab POD#1 -Ancef x24 -DVT prophylaxis: SCDs, teds, 81 mg ASA twice daily -Weight-bear as tolerated left lower extremity -PT/OT -Postoperative x-ray demonstrates a well aligned well fixed prosthesis without fracture or dislocation -A.m. lab - as above, hgb 12.8 -Discharge planning - rehab Total Time Total Time Spent Total Time Spent (In Minutes): 60 Discharge Plan Discharge Items Patient Disposition: Transfer Inpatient Rehab Fac Reason For Visit: Osteoarthritis Left Knee Discharge Diagnosis: Left total knee replacement Condition on Discharge: Good Activity: Per Instructions section Lifting: Wait until after follow-up appointment Bathing: Keep incision dry Bathing Comment: No bathing, pools or hot tubs. Sexual Activity: Wait until after follow-up appointment Exercise/Sports: Wait until after follow-up appointment Driving/Machine Use: No driving. Weightbearing: Full weightbearing Non-emergency contact: Primary Care Provider and Surgeon Call non-emergency contact if: you have any medication questions, your symptoms worsen, your pain is not controlled, your pain is worsening, your pain is unusual for you, your pain is concerning for you, you have a fever, your temperature is above 101, your wound has increased redness, your wound has increased drainage and your wound pain has increased Follow-up/Referrals: PCP,NO [Primary Care Provider] - Diet: Regular Addtl Attending Provider Instructions: ACTIVITY RECOMMENDATIONS: SELF CARE INSTRUCTIONS AFTER TOTAL KNEE REPLACEMENT A. You may need to continue a physical therapy program after discharge from the hospital. There are several options available to you. Your doctor will assist you in selecting the best one for you. 1. An out-patient facility 2 to 3 times a week for therapy or home therapy. 2. Continue working on all exercises taught to you in the hospital. Your goals should be to increase bending of your knee to 90 degrees and beyond and to fully straighten your knee. B. You may progress at your own pace from walking with a walker or crutches to a cane; then to no assistive devices. C. Make walking a part of your daily routine. Be up as much as comfortable with rest periods throughout the day. Rest with leg elevation is very important. Use the ice wrap frequently for the first 3-4 weeks. D. There are no restrictions on activities. You may ride in a car, shop, participate in business writer and all social activities. E. Wear the long elastic stockings (ANUSHKA hose) 20 hours a day for 2 weeks after surgery. They can be removed several times a day for laundering and for a bath. F. You may shower, no tub baths until cleared by your doctor. SPECIAL CARE INSTRUCTIONS: VERY IMPORTANT TO READ AND REVIEW A. There are a few signs you need to watch for after you are home. Call [facility] if you notice any of the followin. Increased severe knee pain. Some pain is expected especially when you exercise. 2. Increased swelling in your leg or knee; pain or swelling of the calf muscle in either lower leg. 3. Any fluid drainage from the incision. 4. Shortness of breath or chest pain. B. Please call [facility] at if you have any concerns or questions about your operation or recovery. The doctor or his nurse will return your call promptly. C. You must take antibiotics before dental work, bladder, bowel or other surgery. Your doctor will provide you with a permanent care to carry describing this precaution. IMPORTANT: * REMEMBER TO TAKE ASPIRIN, 81 MG, TWICE DAILY FOR 4 WEEKS UNLESS OTHERWISE DIRECTED. THIS IS YOUR BLOOD THINNER. * HIGH RISK PATIENTS MAY BE PRESCRIBED A STRONGER BLOOD THINNER. THIS WILL BE PROVIDED AT DISCHARGE. * CALL IF INCREASED PAIN, REDNESS, DRAINAGE OR FEVER GREATER THAT 101. * WEAR ANUSHKA HOSE 20 HOURS PER DAY FOR 2 WEEKS. *DIOR incisional vac is a special dressing covering your incision. This dressing provides a sterile dry environment while you are healing. The dressing is to be left in place for 7 days post-operatively. Your home nurse or surgeon will remove. If you develop any redness or blisters or have any questions notify your surgeon immediately. FOLLOW UP VISIT: If appointment is not already scheduled: Please call [facility] to make a follow-up appointment for 2 weeks after your surgery at . Pending Studies at Discharge: No Stand-Alone Forms: My [facility] Skilled Items Patient informed of condition?: Yes DNR: No Discharge Level of Care: Acute rehab Communicable Disease: No Discharge Prognosis: Stable Lines: None Urinary Catheter: No Medications and DC Order Prescriptions: New celecoxib [Celebrex] 200 mg Capsule 200 mg PO BID PRN (Reason: pain/inflammation) Qty: 28 RF: 0 aspirin 81 mg Tablet,Delayed Release (Dr/Ec) 81 mg PO BID Qty: 56 RF: 0 acetaminophen 500 mg Tablet 1,000 mg PO Q8 PRN (Reason: pain/fevers) Qty: 90 RF: 0 oxycodone 5 mg Tablet 5 mg PO Q6H MDD 4 PRN (Reason: pain) Qty: 30 RF: 0 sennosides [Senokot] 8.6 mg Tablet 17.2 mg PO HS PRN (Reason: constipation) Qty: 28 RF: 0 Continued pravastatin 40 mg Tablet 40 mg PO HS RF: 0 omeprazole 40 mg Capsule,Delayed Release(Dr/Ec) 40 mg PO QAM RF: 0 risperidone 3 mg Tablet 3 mg PO BID RF: 0 levothyroxine 50 mcg Tablet 100 mcg PO UD RF: 0 buspirone 30 mg Tablet 30 mg PO BID RF: 0 benztropine 1 mg Tablet 1 mg PO BID RF: 0 hydroxyzine HCl 25 mg Tablet 25 mg PO QID PRN (Reason: Anxiety) RF: 0 albuterol sulfate [Ventolin HFA] 90 mcg/actuation Hfa Aerosol Inhaler 2 puff INHALATION QID PRN (Reason: sob) RF: 0 sertraline 50 mg Tablet 50 mg PO QAM RF: 0 Pulmicort Flexhaler 90 mcg/actuation Aerosol Powdr Breath Activated 2 inh INHALATION BID RF: 0 Discontinued ibuprofen 600 mg Tablet 600 mg PO BID PRN (Reason: Pain) RF: 0 acetaminophen [Tylenol Extra Strength] 500 mg Capsule 1,000 mg PO BID PRN (Reason: Pain) RF: 0 Discharge Orders: Discharge Order (Routine); Ordered 08/08/20 Ordered By: Mateusz Magaña Admission Data Admit Date/Time: 08/05/20 14:44 Attending Provider: Quoc Das Admit Provider: Quoc Das Primary Care Provider: PCP,NO Other Interventions: Discharge Summary Assessment (RN) Last Done: 08/08/20 09:34
[2020-08-10] MEDS ORDERED: LEVOTHYROXINE SODIUM 100 MCG TABLET PO SCH (06:30)
== END 2020-08-08 12:00 ==
LOC: ASU 10:29 → 3E 10:29